=== PATIENT | male | born 1985 | race African-American/Black ===

== ENCOUNTER 2020-02-04 06:01 | Emergency (ER) | payer OTHER ==
[~2020-02-04] VITALS: Ht 185.4 cm; Wt 100.0 kg
[2020-02-04 06:33] VITALS: BP 109/73
== END 2020-02-04 07:03 | disposition home or self-care (01) ==
LOC: ER 06:01
DX: H61.20 Impacted cerumen, unspecified ear (principal)
CPT/HCPCS: 99282